=== PATIENT | male | born 1980 | race Two or more races ===

== ENCOUNTER 2020-12-27 05:22 | Emergency (ER) | payer MEDICAID, OTHER ==
[~2020-12-27] VITALS: Ht 185.4 cm; Wt 122.5 kg
[2020-12-27] MEDS ORDERED: LISINOPRIL 10 MG TAB PO ONE (05:45)
[2020-12-27 06:10] VITALS: BP 119/72
== END 2020-12-27 06:33 | disposition home or self-care (01) ==
LOC: ER 05:22
DX: I10 Essential (primary) hypertension (principal); F41.9 Anxiety disorder, unspecified

== ENCOUNTER 2023-03-19 13:33 | Emergency (ER) | payer MEDICAID ==
[~2023-03-19] VITALS: Ht 177.8 cm; Wt 122.7 kg
[2023-03-19 14:17] VITALS: BP 148/95; PULSE 68; RESP 16; TEMP 98.3; O2SAT 97
[2023-03-19] MEDS ORDERED: LORA-1121 PO (14:53)
[2023-03-19] MEDS ORDERED: CLOT1CRE56 TOP (14:53)
[2023-03-19] MEDS ORDERED: HYDR50CA PO (14:55)
== END 2023-03-19 14:41 | disposition left against medical advice (07) ==
LOC: ER 13:33 → EDBD 13:33 → ER 14:41
DX: F41.1 Generalized anxiety disorder (principal); B35.0 Tinea barbae and tinea capitis; I10 Essential (primary) hypertension; Z76.0 Encounter for issue of repeat prescription

== ENCOUNTER 2023-07-07 17:25 | Emergency (ER) | payer MEDICAID ==
[~2023-07-07] VITALS: Ht 185.4 cm; Wt 112.5 kg
[~2023-07-07 17:25] MED LIST: CLOT1CRE56 TOP; HYDR50CA PO
[2023-07-07] MEDS ORDERED: KETOROLAC TROMETH 60MG/2ML VIAL IM ONE (20:15)
[2023-07-07] MEDS ORDERED: CLIN300C70 PO (21:35)
[2023-07-07] MEDS ORDERED: MORPHINE SULFATE INJ 2 MG/ml SYRG IV ONE (22:15)
[2023-07-07] MEDS ORDERED: ONDANSETRON ODT 4 MG TAB PO ONE (22:15)
[2023-07-07] MEDS: PENICILLIN G POTASSIUM 2,500,000 UNITS in D5W 5% 50 ML IV SCH (22:49)
[2023-07-08 00:38] VITALS: BP 125/80; PULSE 69; RESP 18; O2SAT 99
[2023-07-08] MEDS: PENICILLIN G POTASSIUM 2,500,000 UNITS in D5W 5% 50 ML IV SCH (01:15)
== END 2023-07-08 02:05 | disposition home or self-care (01) ==
LOC: ER 17:25
DX: S02.602A Fracture of unspecified part of body of left mandible, initial encounter for closed fracture (principal); S02.5XXA Fracture of tooth (traumatic), initial encounter for closed fracture; I10 Essential (primary) hypertension; R51.9 Headache, unspecified; Z79.2 Long term (current) use of antibiotics; Z79.899 Other long term (current) drug therapy; Y04.2XXA Assault by strike against or bumped into by another person, initial encounter; Y93.89 Activity, other specified; Y92.89 Other specified places as the place of occurrence of the external cause; Y99.8 Other external cause status
CPT/HCPCS: 70486; 96372; 96374; 99285; J1885; J2270; J2540; J7060; Q0162

== ENCOUNTER 2023-08-20 13:23 | Emergency (ER) | payer MEDICAID ==
[~2023-08-20] VITALS: Ht 185.4 cm; Wt 113.8 kg
[~2023-08-20 13:23] MED LIST changes: +CLIN300C70 PO
[2023-08-20 14:39] VITALS: BP 140/103; PULSE 64; RESP 18; TEMP 97; O2SAT 98
[2023-08-20] MEDS ORDERED: OXYCODONE W/ ACETAMINOPHEN 5/325MG TABLET PO ONE (14:45)
[2023-08-20] MEDS ORDERED: OXY10CRT PO ×3 (14:48→15:25)
== END 2023-08-20 15:23 | disposition home or self-care (01) ==
LOC: ER 13:23
DX: R68.84 Jaw pain (principal); I10 Essential (primary) hypertension; F41.9 Anxiety disorder, unspecified; F15.90 Other stimulant use, unspecified, uncomplicated; Z76.0 Encounter for issue of repeat prescription; Z86.73 Personal history of transient ischemic attack (TIA), and cerebral infarction without residual deficits; Z98.890 Other specified postprocedural states; Z87.891 Personal history of nicotine dependence; Z79.899 Other long term (current) drug therapy

== ENCOUNTER 2024-01-05 10:51 | Emergency (ER) | payer MEDICAID ==
[~2024-01-05] VITALS: Ht 182.9 cm; Wt 117.9 kg
[~2024-01-05 10:51] MED LIST changes: +CLIN1CAP70 PO; -CLIN300C70 PO; +OXY10CRT PO
[2024-01-05 12:32] VITALS: TEMP 98.3; O2SAT 98
[2024-01-05] MEDS: HYDROmorphone HCL 2 MG/ML VL/or syr IM ONE (12:45)
[2024-01-05] MEDS: cefTRIAXone SOD 1,000 MG VL IM ONE (13:13)
[2024-01-05 13:15] VITALS: BP 145/85; PULSE 55; RESP 18
== END 2024-01-05 13:30 | disposition home or self-care (01) ==
LOC: ER 10:51
DX: G89.29 Other chronic pain (principal); R68.84 Jaw pain; F41.9 Anxiety disorder, unspecified; I10 Essential (primary) hypertension; F17.290 Nicotine dependence, other tobacco product, uncomplicated; F12.10 Cannabis abuse, uncomplicated; Z86.73 Personal history of transient ischemic attack (TIA), and cerebral infarction without residual deficits
CPT/HCPCS: 96372; 99284; J0696; J1170

== ENCOUNTER 2024-03-17 13:27 | Emergency (ER) | payer MEDICAID ==
[~2024-03-17] VITALS: Ht 182.9 cm; Wt 120.0 kg
[2024-03-17 15:29] VITALS: BP 137/82; PULSE 72; RESP 17; TEMP 97.7; O2SAT 97
[2024-03-17] MEDS ORDERED: oxyCODONE ER 10 MG TAB PO ONE (15:30)
== END 2024-03-17 15:33 | disposition home or self-care (01) ==
LOC: ER 13:27
DX: R68.84 Jaw pain (principal); G89.29 Other chronic pain; I10 Essential (primary) hypertension; F41.9 Anxiety disorder, unspecified; F15.90 Other stimulant use, unspecified, uncomplicated; Z76.0 Encounter for issue of repeat prescription; Z86.73 Personal history of transient ischemic attack (TIA), and cerebral infarction without residual deficits; Z87.891 Personal history of nicotine dependence; Z79.899 Other long term (current) drug therapy